=== PATIENT | female | born 1960 | race Caucasian/White ===

== ENCOUNTER → 2016-09-06 | Outpatient (CLI) | payer OTHER | LOC: US 14:45 | DX: I88.9 Nonspecific lymphadenitis, unspecified (principal) | CPT/HCPCS: 76536 ==

== ENCOUNTER → 2020-05-08 | Outpatient (CLI) | payer OTHER ==
[~2020-05-08] MED LIST: FIORINAL 50-321 EACH PO
== END ==
LOC: EXRD 13:41
DX: M79.604 Pain in right leg (principal)
CPT/HCPCS: 93970; J7120

== ENCOUNTER → 2020-06-15 | Outpatient (CLI) | payer OTHER | LOC: EXRD 11:41 | DX: M79.642 Pain in left hand (principal); M79.641 Pain in right hand; R76.8 Other specified abnormal immunological findings in serum | CPT/HCPCS: 73130; J2930 ==

== ENCOUNTER → 2020-09-02 | Outpatient (CLI) | payer OTHER | LOC: RAD 16:28 | DX: R06.02 Shortness of breath (principal); R07.89 Other chest pain; N17.9 Acute kidney failure, unspecified; I10 Essential (primary) hypertension; J30.9 Allergic rhinitis, unspecified; E78.00 Pure hypercholesterolemia, unspecified; F41.9 Anxiety disorder, unspecified; F32.9 Major depressive disorder, single episode, unspecified; M19.90 Unspecified osteoarthritis, unspecified site | CPT/HCPCS: 71046 ==

== ENCOUNTER → 2020-09-02 | Outpatient (CLI) | payer OTHER | LOC: HEART 5 14:50 | DX: R06.02 Shortness of breath (principal) | CPT/HCPCS: 94010 ==

== ENCOUNTER → 2020-09-22 | Outpatient (CLI) | payer OTHER | LOC: ECHO 09-09 13:00 | DX: M25.551 Pain in right hip (principal); M25.552 Pain in left hip; R06.02 Shortness of breath; B94.8 Sequelae of other specified infectious and parasitic diseases; M16.0 Bilateral primary osteoarthritis of hip; I51.89 Other ill-defined heart diseases | CPT/HCPCS: ECHO; 73522; 93306 ==

== ENCOUNTER 2021-02-12 11:31 | Emergency (ER) | payer OTHER ==
[2021-02-12] MEDS ORDERED: BACTROBAN OINT22 GM EXT (13:17)
[2021-02-12] MEDS ORDERED: CEPHALEXIN500 MG PO (13:17)
== END 2021-02-12 13:41 | disposition home or self-care (01) ==
LOC: ER1 11:31
DX: S01.01XA Laceration without foreign body of scalp, initial encounter (principal); Z23 Encounter for immunization; W01.10XA Fall on same level from slipping, tripping and stumbling with subsequent striking against unspecified object, initial encounter
CPT/HCPCS: 12001; 70450; 90471; 90715; 99283

== ENCOUNTER 2021-04-04 09:13 | Emergency (ER) | payer OTHER ==
[~2021-04-04 09:13] MED LIST changes: +BACTROBAN OINT22 GM EXT; +CEPHALEXIN500 MG PO
== END 2021-04-04 10:50 | disposition home or self-care (01) ==
LOC: ER1 09:13
DX: S01.81XA Laceration without foreign body of other part of head, initial encounter (principal); W22.8XXA Striking against or struck by other objects, initial encounter
CPT/HCPCS: 12013; 99283

== ENCOUNTER → 2021-08-19 | Outpatient (CLI) | payer OTHER | LOC: NM 09:10 | DX: M89.8X9 Other specified disorders of bone, unspecified site (principal); R93.7 Abnormal findings on diagnostic imaging of other parts of musculoskeletal system | CPT/HCPCS: 78306; A9503 ==

== ENCOUNTER → 2021-09-09 | Outpatient (CLI) | payer OTHER | LOC: RAD 17:38 | DX: M54.2 Cervicalgia (principal); R07.81 Pleurodynia | CPT/HCPCS: 71101; 72040 ==

== ENCOUNTER → 2021-10-05 | Outpatient (CLI) | payer OTHER | LOC: LAB 16:16 | DX: Z20.822 Contact with and (suspected) exposure to COVID-19 (principal) | CPT/HCPCS: U0003 ==

== ENCOUNTER → 2021-11-10 | Outpatient (CLI) | payer OTHER | LOC: KOH-I 14:25 | DX: M25.561 Pain in right knee (principal); M25.562 Pain in left knee; M25.572 Pain in left ankle and joints of left foot; M79.672 Pain in left foot | CPT/HCPCS: 73562; 73610; 73630 ==

== ENCOUNTER → 2021-12-15 | Outpatient (CLI) | payer OTHER | LOC: KOH-I 15:19 | DX: R06.02 Shortness of breath (principal) | CPT/HCPCS: 71046 ==